=== PATIENT | male | born 1965 | race Caucasian/White ===

== ENCOUNTER → 2016-12-19 | Outpatient (REF) | payer OTHER | LOC: M SFHCLERA 10:18 | PROVIDERS: ATTEND Nurse Practitioner Women's Health | DX: Z12.5 Encounter for screening for malignant neoplasm of prostate (principal); N52.9 Male erectile dysfunction, unspecified | CPT/HCPCS: 84402; 84403; G0103 ==

== ENCOUNTER → 2017-04-10 | Outpatient (CLI) | payer OTHER | LOC: M SMT 13:10 | PROVIDERS: ATTEND Nurse Practitioner Women's Health | DX: Z12.5 Encounter for screening for malignant neoplasm of prostate (principal) | CPT/HCPCS: 36415; G0103 ==

== ENCOUNTER 2019-07-18 09:03 | Day surgery (SDC) | payer OTHER ==
[~2019-07-18] VITALS: Ht 170.2 cm; Wt 93.0 kg
[~2019-07-18 09:03] MED LIST: ADV250INH PO; GABA800T4 PO; MELO15TA28 PO; NS 1,000 ML IV ONE; PROAAER10 INH; TRAM50TA2 PO
[2019-07-18] MEDS ORDERED: LIDOCAINE 2% INJ 100 MG/5 ML SDV (FOR ANES.) As Ordered ONE (09:29)
[2019-07-18] MEDS ORDERED: PROPOFOL 200 MG/20 ML VIAL As Ordered ONE ×4 (09:29→11:36)
[2019-07-18] MEDS ORDERED: ALBUTEROL SULFATE 2.5 MG/0.5 ML INH NEB SOLN INH ONE (10:00)
[2019-07-18] MEDS ORDERED: ALBUTEROL SULFATE 2.5 MG/0.5 ML INH NEB SOLN As Ordered ONE (10:03)
--- NOTE | 2019-07-18 11:49 | ROOR ---
Patient Name: Jeffery Hernandez Procedure Date: 07/18/2019 10:00 AM Date of : 1965 Age: 53 Room: [facility] Gender: Male Note Status: Finalized Procedure: Colonoscopy Indications: Surveillance: Personal history of piecemeal removal of large sessile adenoma on last colonoscopy (less than 1 year ago) Providers: Jeffrey Moore MD Referring MD: BARNEY GUAMAN MD Requesting Provider: Medicines: Monitored Anesthesia Care Complications: No immediate complications. Procedure: Pre-Anesthesia Assessment: - Prior to the procedure, a History and Physical was performed, and patient medications and allergies were reviewed. The patient is competent. The risks and benefits of the procedure and the sedation options and risks were discussed with the patient. All questions were answered and informed consent was obtained. Patient identification and proposed procedure were verified by the physician, the nurse and the anesthesiologist in the procedure room. Mental Status Examination: alert and oriented. Respiratory Examination: clear to auscultation. CV Examination: normal. Prophylactic Antibiotics: The patient does not require prophylactic antibiotics. Prior Anticoagulants: The patient has taken no previous anticoagulant or antiplatelet agents. ASA Grade Assessment: II - A patient with mild systemic disease. After reviewing the risks and benefits, the patient was deemed in satisfactory condition to undergo the procedure. The anesthesia plan was to use monitored anesthesia care (MAC). Immediately prior to administration of medications, the patient was re-assessed for adequacy to receive sedatives. The heart rate, respiratory rate, oxygen saturations, blood pressure, adequacy of pulmonary ventilation, and response to care were monitored throughout the procedure. The physical status of the patient was re-assessed after the procedure. The colonoscopy was performed without difficulty. The patient tolerated the procedure well. The quality of the bowel preparation was good. The terminal ileum, ileocecal valve, appendiceal orifice, and rectum were photographed. Scope insertion time was 3 minutes. Scope withdrawal time was 9 minutes. The total duration of the procedure was 12 minutes. The Colonoscope was introduced through the anus and advanced to the terminal ileum, with identification of the appendiceal orifice and IC valve. Findings: The perianal and digital rectal examinations were normal. The terminal ileum appeared normal. A 10 mm polyp was found in the ascending colon. The polyp was sessile. The polyp was removed with a cold snare. Resection and retrieval were complete. Verification of patient identification for the specimen was done by the physician and nurse using the patient's name, date and medical record number. Estimated blood loss was minimal. A few sessile polyps were found in the rectum, recto-sigmoid colon and ascending colon. The polyps were 3 to 6 mm in size. These polyps were removed with a jumbo cold forceps. Resection and retrieval were complete. Non-bleeding external and internal hemorrhoids were found during retroflexion. The hemorrhoids were medium-sized. Impression: - The examined portion of the ileum was normal. - One 10 mm polyp in the ascending colon, removed with a cold snare. Resected and retrieved. - A few 3 to 6 mm polyps in the rectum, at the recto-sigmoid colon and in the ascending colon, removed with a jumbo cold forceps. Resected and retrieved. - Non-bleeding external and internal hemorrhoids. Recommendation: - Patient has a contact number available for emergencies. The signs and symptoms of potential delayed complications were discussed with the patient. Return to normal activities tomorrow. Written discharge instructions were provided to the patient. - Resume previous diet. - Continue present medications. - Await pathology results. - Repeat colonoscopy in 3 years for surveillance and due to personal history of colon polyps in past Colonoscopy. - Telephone GI clinic for pathology results in 2 weeks. - Return to primary care physician. Jeffrey Moore MD Jeffrey Moore MD 07/18/2019 11:48:25 AM Electronically signed by Jeffrey Moore MD Number of Addenda: 0 Note Initiated On: 07/18/2019 9:28 AM Estimated Blood Loss: Estimated blood loss was minimal.
[2019-07-18 12:25] VITALS: BP 141/83
== END 2019-07-18 12:45 | disposition home or self-care (01) ==
LOC: M OPP 09:03
PROVIDERS: ATTEND Internal Medicine Gastroenterology
DX: Z86.010 Personal history of colon polyps (principal); Z09 Encounter for follow-up examination after completed treatment for conditions other than malignant neoplasm; K64.8 Other hemorrhoids; D12.2 Benign neoplasm of ascending colon; K62.1 Rectal polyp; D12.7 Benign neoplasm of rectosigmoid junction; Z79.891 Long term (current) use of opiate analgesic; Z79.899 Other long term (current) drug therapy; Z88.8 Allergy status to other drugs, medicaments and biological substances

== ENCOUNTER 2020-09-09 13:04 | Emergency (ER) | payer OTHER ==
[~2020-09-09] VITALS: Ht 170.2 cm; Wt 94.5 kg
[~2020-09-09 13:04] MED LIST changes: -NS 1,000 ML IV ONE
[2020-09-09] MEDS ORDERED: SILD50TA2 (13:31)
[2020-09-09] MEDS ORDERED: DEPO200I7 (13:31)
[2020-09-09] MEDS ORDERED: dexameTHASONE 20MG/5ML VIAL (J1100 PER 1MG) IV ONE (13:45)
[2020-09-09] MEDS ORDERED: ASPIRIN 81 MG CHEW TABLET PO ONE (13:45)
[2020-09-09 14:15] LABS: VENOUS BASE EXCESS 0.4 (-2.0-2.0); VENOUS HCO3 28.5 MEQ/L (23.0-27.0); VENOUS O2 SATURATION 61.6 % (60.0-80.0); VENOUS PARTIAL PRESSURE CO2 59.1 mmHg (38.0-50.0); VENOUS PARTIAL PRESSURE O2 33.9 mmHg (30.0-50.0); VENOUS PH 7.301 UNITS (7.330-7.430); VENOUS STANDARD HCO3 23.8 MEQ/L; VENOUS TOTAL CO2 30.3 MEQ/L (24.0-28.0)
[2020-09-09] MEDS: COMBIVENT RESPIMAT 100-20MCG INHALER 4GM INH SCH ×3 (14:16→15:09)
[2020-09-09 14:27] LABS: BASO # 0.1 10^3/uL (0.0-0.2); BASO % 1.2 % (0.0-1.0); EOS # 0.7 10^3/uL (0.0-0.5); EOS % 5.5 % (0.0-3.0); HEMATOCRIT 49.9 % (42.0-52.0); HEMOGLOBIN 16.6 g/dl (13.5-17.5); LYMPH % 32.9 % (24.0-44.0); MEAN CORPUSCULAR HEMOGLOBIN 30.3 pg (27.0-33.0); MEAN CORPUSCULAR HGB CONC 33.3 g/dl (32.0-36.5); MEAN CORPUSCULAR VOLUME 91.2 fl (80.0-96.0); MONO # 1.2 10^3/uL (0.0-0.8); MONO % 9.9 % (0.0-5.0); NEUTROPHILS # 6.1 10^3/uL (1.5-8.5); NEUTROPHILS % 50.1 % (36.0-66.0); PLATELET COUNT, AUTOMATED 354 10^3/uL (150-450); RED BLOOD COUNT 5.47 10^6/uL (4.30-6.10); WHITE BLOOD COUNT 12.2 10^3/uL (4.0-10.0)
[2020-09-09 14:40] LABS: INR 1.02; PROTHROMBIN TIME 13.6 SECONDS (12.5-14.3)
--- OUTSIDE RECORDS SUMMARY | 2020-09-09 14:54 | CCD | Continuity of Care Document ---
Author Author Jeffery GUAMAN M.D. Organization Unknown Address [address] [address] Phone [phone] Problems Active Problems Provider Date Testicular hypofunction Kaushal Guaman M.D. Onset: 11/01 Abnormal testosterone Kaushal Guaman M.D. Onset: 018 Social History Type Date Description Comments Sex Unknown ETOH Use Denies alcohol use Tobacco Use Start: Unknown End: Unknown Patient is a former smoker Cigarettes - Quit 2006 Recreational Drug Use Denies Drug Use Allergies, Adverse Reactions, Alerts Active Allergies Reaction Severity Comments Date Naproxen stomache upset 08/30/2017 Medications Active Medications SIG Qnty Indications Ordering Provide r Date Omeprazole 20mg Capsules DR 1 by mouth every morning 90caps Kaushal Guaman M.D. 08/05/20 20 Proair HFA 108(90Base) mcg/Act Aer osol inhale 2 puffs by mouth every 6 hours as needed 25.5units Kaushal Guaman M.D. 12/17/2019 Testosterone Cypionate 200mg/ml So lution inject 0.75ml intramuscularly once a week maximum daily dose = 0.75ml/7days [id number], code F 9units E29.1 Kaushal Guaman M.D. 2019 Meloxicam 15mg Tablets 1 by mouth every day 90tabs Kaushal Guaman M.D. 04/11/20 18 Spiriva Respimat 1.25mcg/Act Aeros ol 2 puffs every day 4gm Kaushal Guaman M.D. 08/30/19 18 Gabapentin 800mg Tablets take 1 tablet by mouth four times a day 360tabs Kaushal Guaman M.D. 0 08/30/2017 Viagra 50mg Tablets use as directed dx: e 29.1, r 94.8 30tabs E29.1 Kaushal Guaman M.D. 00 R94.8 Advair Diskus 250-50mcg/Dose Aeros ol inhale one puff by mouth twice a day 3disck Nolan Guaman M.D. Tramadol HCL 50mg Tablets take 1 tablet by mouth 3 times a day as needed for pain : 90tabs S97.82xD Kaushal Guaman M.D. Immunizations CPT Code Status Date Vaccine Lot # [id number] Refused 08/30/2017 Influenza Virus Vaccine, Quadrivalent, Slit Virus, Im Use 3Y & Up Vital Signs Date Vital Result Comment 08/05/2020 9:24am BP Systolic 138 mmHg BP Diastolic 66 mmHg Body Temperature 97.7 F Heart Rate 78 /min Respiratory Rate 14 /min Weight 214.00 lb O2 % BldC Oximetry 96 % 04/01/2020 9:56am BP Systolic 130 mmHg BP Diastolic 64 mmHg Heart Rate 72 /min Respiratory Rate 14 /min Weight 212.00 lb Results Test Acquired Date Facility Test Result H/L Range Note CMP 04/01/2020 [facility] Glu 108 mg/dL 70 - 110 1 BUN 8 mg/dL 8 - 23 Creat 1.1 mg/dL 0.7 - 1.2 BUN/Creatinine Ratio 7.5 Calc Na 139 mmol/L 136 - 145 K 4.0 mmol/L 3.5 - 5.1 CL 99.9 mmol/L 98.0 - 107.0 Co2 26.9 mmol/L 22.0 - 29.0 CA 9.0 mg/dL 8.6 - 10.2 TP 6.7 g/dL 6.6 - 8.7 Alb 4.8 g/dL 3.5 - 5.2 A/G Ratio 2.5 Calc Globulin 1.9 Calc Alp 100.6 U/L 40 - 129 Alt (SGPT) 39 U/L 0 - 41 Ast (Sgot) 34 U/L 0 - 40 Tbili 0.07 mg/dL 0.0 - 1.2 Osmolality-Calculated 277.1 Calc Anion Gap 17 mmol/L eGFR 88 # Calc 2 eGFR Non-Afr. Martiniquais 76 # Calc 3 Laboratory test finding 04/01/2020 [facility] [place] Testosterone, Serum 72 ng/dL Low 264-916 4 Laboratory test finding 04/01/2020 [facility] PSA, Total 0.94 ng/mL 0.0 - 4.0 1 CHRONIC KIDNEY DISEASE STAGI NG PER NKF: MALE GFR INTERPRETATION: 20-49 YRS: >60 mL/min Normal 50-59 YRS: >56 mL/min Normal 60-69 YRS: >49 mL/min Normal 70-79 YRS: >42 mL/min Normal 80 and above >35 mL/min Normal FEMALE GRF INTERPRETATION: 20-39 YRS: >60 mL/min Normal 40-49 YRS: >58 mL/min Normal 50-59 YRS: >51 mL/min Normal 60-69 YRS: >45 mL/min Normal 70-79 YRS: >39 mL/min Normal 80 and above >32 mL/min Normal 2 CKD-EPI 3 CKD-EPI 4 Adult male reference interva l is based on a population of healthy nonobese males (BMI <30) between 19 and 39 years old. Marina et.al. JCEM 2017,102;2098-6999. PMID: [id number]. Procedures Description No Information Available Medical Devices Description No Information Available Encounters Type Date Location Provider Dx Diagnosis Office Visit 08/05/2020 9:30a [place] [facility] Kaushal Guaman M.D . M79.672 Pain in left foot Office Visit 04/01/2020 10:00a [place] [facility] Kaushal Guaman M.D . J44.9 Chronic obstructive pulmonary disease, unspecified E29.1 Testicular hypofunction M79.672 Pain in left foot Assessments Date Code Description Provider 08/05/2020 M79.672 Pain in left foot Pato Guaman M.D. 04/01/2020 J44.9 Chronic obstructive pulmonary di sease, unspecified Kaushal Guaman M.D. 04/01/2020 E29.1 Testicular hypofunction Kaushal Guaman M.D. 04/01/2020 M79.672 Pain in left foot Pato Guaman M.D. Plan of Treatment Future Appointment(s):* 02/03/2021 9:15 am - Kaushal Guaman M.D. at [facility] Functional Status Description No Information Available Mental Status Description No Information Available Referrals Description No Information Available
--- OUTSIDE RECORDS SUMMARY | 2020-09-09 14:54 | CCD | Continuity of Care Document ---
Author Author Jeffery GUAMAN M.D. Organization Unknown Address [address] [address] Phone [phone] Problems Active Problems Provider Date Testicular hypofunction [...] a week maximum daily dose = 0.75ml/7days [id number], code F 9units E29.1 Kaushal Guaman M.D. [...] CPT Code Status Date Vaccine Lot # [id number] Refused 08/30/2017 Influenza Virus Vaccine, Quadrivalent, Slit [...] eGFR 88 # Calc 2 eGFR Non-Afr. Faroese 76 # Calc 3 Laboratory test finding [...] and 39 years old. Marina et.al. JCEM 2017,102;4675-9867. PMID: [id number]. Procedures Description No Information Available Medical Devices Description No Information Available Encounters Type Date Location Provider Dx Diagnosis Office Visit 08/05/2020 9:30a [place] [facility] Kaushal Guaman M.D . M79.672 Pain in left foot Office Visit 04/01/2020 10:00a [place] [facility] Kaushal Guaman M.D . J44.9 Chronic obstructive pulmonary disease, unspecified E29.1 Testicular hypofunction M79.672 Pain in left foot Assessments Date Code Description Provider 08/05/2020 M79.672 Pain in left foot Pato Guaman M.D. 04/01/2020 J44.9 Chronic obstructive pulmonary di sease, unspecified Kaushal Guaman M.D. 04/01/2020 E29.1 Testicular hypofunction Kaushal Guaman M.D. 04/01/2020 M79.672 Pain in left foot Pato Guaman M.D. Plan of Treatment No Information Available Functional Status Description No Information Available Mental Status Description No Information Available Referrals Description No Information Available
--- OUTSIDE RECORDS SUMMARY | 2020-09-09 14:54 | CCD ---
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 Role Phone Larissa GUAMAN MD Unavailable Unavailable Larissa GUAMAN MD Unavailable Unavailable Larissa GUAMAN MD Unavailable Unavailable Larissa GUAMAN MD Unavailable Unavailable Larissa GUAMAN MD Unavailable Unavailable Larissa GUAMAN MD Unavailable Unavailable Larissa GUAMAN MD Unavailable Unavailable Larissa GUAMAN MD Unavailable Unavailable Larissa GUAMAN MD Unavailable Unavailable Larissa GUAMAN MD Unavailable Unavailable Larissa GUAMAN MD Unavailable Unavailable Larissa GUAMAN MD Unavailable Unavailable Larissa GUAMAN MD Unavailable Unavailable Larissa GUAMAN MD Unavailable Unavailable Larissa GUAMAN MD Unavailable Unavailable Larissa GUAMAN MD Unavailable Unavailable Larissa GUAMAN MD Unavailable Unavailable Larissa GUAMAN MD Unavailable Unavailable Larissa GUAMAN MD Unavailable Unavailable Larissa GUAMAN MD Unavailable Unavailable Larissa GUAMAN MD Unavailable Unavailable Larissa GUAMAN MD Unavailable Unavailable Larissa GUAMAN MD Unavailable Unavailable Larissa GUAMAN MD Unavailable Unavailable Larissa GUAMAN MD Unavailable Unavailable Larissa GUAMAN MD Unavailable Unavailable Larissa GUAMAN MD Unavailable Unavailable Larissa GUAMAN MD Unavailable Unavailable Larissa GUAMAN MD Unavailable Unavailable Larissa GUAMAN MD Unavailable Unavailable Larissa GUAMAN MD Unavailable Unavailable Larissa GUAMAN MD Unavailable Unavailable Larissa GUAMAN MD Unavailable Unavailable Larissa GUAMAN MD Unavailable Unavailable Larissa GUAMAN MD Unavailable Unavailable ROWENA, H BARNEY MD Unavailable Unavailable ROWENA, H BARNEY MD Unavailable Unavailable ROWENA, H BARNEY MD Unavailable Unavailable ROWENA, H BARNEY MD Unavailable Unavailable ROWENA, H BANREY MD Unavailable Unavailable ROWENA, H BARNEY MD Unavailable Unavailable ROWENA, H BARNEY MD Unavailable Unavailable ROWENA, H BARNEY MD Unavailable Unavailable ROWENA, H BARNEY MD Unavailable Unavailable ROWENA, H BARNEY MD Unavailable Unavailable ROWENA, H BARNEY MD Unavailable Unavailable ROWENA, H BARNEY MD Unavailable Unavailable ROWENA, H BARNEY MD Unavailable Unavailable ROWENA, H BARNEY MD Unavailable Unavailable ROWENA, H BARNEY MD Unavailable Unavailable ROWENA, H BARNEY MD Unavailable Unavailable ROWENA, H BARNEY MD Unavailable Unavailable ROWENA, H BARNEY MD Unavailable Unavailable ROWENA, H BARNEY MD Unavailable Unavailable ROWENA, H BARNEY MD Unavailable Unavailable ROWENA, H BARNEY MD Unavailable Unavailable ROWENA, H BARNEY MD Unavailable Unavailable ROWENA, H BARNEY MD Unavailable Unavailable ROWENA, H BARNEY MD Unavailable Unavailable ROWENA, H BARNEY MD Unavailable Unavailable ROWENA, H BARNEY MD Unavailable Unavailable ROWENA, H BARNEY MD Unavailable Unavailable ROWENA, H BARNEY MD Unavailable Unavailable ROWENA, H BARNEY MD Unavailable Unavailable ROWENA, H BARNEY MD Unavailable Unavailable ROWENA, H BARNEY MD Unavailable Unavailable ROWENA, H BARNEY MD Unavailable Unavailable ROWENA, H BARNEY MD Unavailable Unavailable ROWENA, H BARNEY MD Unavailable Unavailable ROWENA, H BARNEY MD Unavailable Unavailable ROWENA, H BARNEY MD Unavailable Unavailable ROWENA, H BARNEY MD Unavailable Unavailable ROWENA, H BARNEY MD Unavailable Unavailable ROWENA, H BARNEY MD Unavailable Unavailable ROWENA, H BARNEY MD Unavailable Unavailable Re-disclosure Warning The records that you are about to access may contain information from federally-assisted alcohol or drug abuse programs. If such information is present, then the following federally mandated warning applies: This information has been disclosed to you from records protected by federal confidentiality rules (42 CFR part 2). The federal rules prohibit you from making any further disclosure of this information unless further disclosure is expressly permitted by the written consent of the person to whom it pertains or as otherwise permitted by 42 CFR part 2. A general authorization for the release of medical or other information is NOT sufficient for this purpose. The Federal rules restrict any use of the information to criminally investigate or prosecute any alcohol or drug abuse patient.The records that you are about to access may contain highly sensitive health information, the redisclosure of which is protected by Article 27-F of the [facility] Public Health law. If you continue you may have access to information: Regarding HIV / AIDS; Provided by facilities licensed or operated by the [facility] Office of Mental Health; or Provided by the [facility] Office for People With Developmental Disabilities. If such information is present, then the following [facility] mandated warning applies: This information has been disclosed to you from confidential records which are protected by state law. State law prohibits you from making any further disclosure of this information without the specific written consent of the person to whom it pertains, or as otherwise permitted by law. Any unauthorized further disclosure in violation of state law may result in a fine or snf sentence or both. A general authorization for the release of medical or other information is NOT sufficient authorization for further disc losure. Family History Family Member Name Family Member Gender Family Member Status Date o f Status Description Data Source(s) Unknown Unknown Problem [facility] ([facility] Unknown Unknown Problem [facility] ([facility]) Encounters Encounter Providers Location Date Indications Data Source(s ) Outpatient Attender: BARNEY GUAMAN MD [place] [facility] 05/2020 08:30:00 AM EST [facility] Outpatient Attender: BARNEY GUAMAN MD [place] [facility] 01/2020 10:00:00 AM EDT [facility] ([facility] Medications Medication Brand Name Start Date Product Form Dose Route Admi nistrative Instructions Pharmacy Instructions Status Indications Reaction Description Data Source(s) 20 mg 08/06/2020 12:00:00 AM EST capsule,delayed release (DR/EC) 30 TAKE ONE CAPSULE BY MOUTH EVERY MORNING TAKE ONE CAPSULE BY MOUTH EVERY MORNING SOLD: 08/07/2020 [facility] Omeprazole 20 MG Delayed Release Oral Capsule Omeprazole 08/05/2020 12:00:00 AM EST ORAL active MED[facility] ([facility] 50 mg 06/16/2020 12:00:00 AM EDT tablet 90 TAKE ONE TABLET BY MOUTH THREE TIMES A DAY NEEDED FOR PAIN, MAXIMUM DAILY DOSE = 3 TAKE ONE TABLET BY MOUTH THREE TIMES A DAY NEEDED FOR PAIN, MAXIMUM DAILY DOSE = 3 SOLD: 06/16/2020 [facility] 50 mg 06/16/2020 12:00:00 AM EDT tablet 90 TAKE ONE TABLET BY MOUTH THREE TIMES A DAY NEEDED FOR PAIN, MAXIMUM DAILY DOSE = 3 TAKE ONE TABLET BY MOUTH THREE TIMES A DAY NEEDED FOR PAIN, MAXIMUM DAILY DOSE = 3 SOLD: 07/17/2020 [facility] 50 mg 06/16/2020 12:00:00 AM EDT tablet 90 TAKE ONE TABLET BY MOUTH THREE TIMES A DAY NEEDED FOR PAIN, MAXIMUM DAILY DOSE = 3 TAKE ONE TABLET BY MOUTH THREE TIMES A DAY NEEDED FOR PAIN, MAXIMUM DAILY DOSE = 3 SOLD: 08/16/2020 [facility] 200 ACTUAT Albuterol 0.09 MG/ACTUAT Metered Dose Inhaler [Pr oAir] Proair HFA 12/17/2019 12:00:00 AM EDT ORAL active [facility] ([facility] 200 mg/mL 11/24/2019 12:00:00 AM EDT oil 3 INJECT 0.75ML INTRAMUSCULARLY ONCE WEEKLY - MAXIMUM DAILY DOSE = 0.75ML EVERY 7 DAYS INJECT 0.75ML INTRAMUSCULARLY ONCE WEEKLY - MAXIMUM DAILY DOSE = 0.75ML EVERY 7 DAYS SOLD: 11/26/2019 [facility] testosterone cypionate 200 MG/ML Injectable Solution Testost erone Cypionate 10/13/2019 12:00:00 AM EST active [facility] ([facility] 200 mg/mL 10/13/2019 12:00:00 AM EST oil 3 INJECT 0.75ML INTRAMUSCULARLY ONCE A WEEK MAXIMUM DAILY DOSE = 0.75ML/7DAYS INJECT 0.75ML INTRAMUSCULARLY ONCE A WEEK MAXIMUM DAILY DOSE = 0.75ML/7DAYS SOLD: 10/17/2019 [facility] 200 mg/mL 09/10/2019 12:00:00 AM EST oil 3 INJECT 0.75ML INTRAMUSCULARLY ONCE WEEKLY, NOT TO EXCEED 0.75ML EVERY 7 DAYS INJECT 0.75ML INTRAMUSCULARLY ONCE WEEKLY, NOT TO EXCEED 0.75ML EVERY 7 DAYS SOLD: 09/15/2019 [facility] 200 mg/mL 08/08/2019 12:00:00 AM EST oil 3 INJECT 0.75ML INTRAMUSCULARLY ONCE WEEKLY - MAXIMUM DAILY DOSE = 0.75ML INJECT 0.75ML INTRAMUSCULARLY ONCE WEEKLY - MAXIMUM DAILY DOSE = 0.75ML SOLD: 08/15/2019 [facility] Insurance Providers Payer name Policy type / Coverage type Policy ID Covered constitution party ID Covered constitution party's relationship to mueller Policy Mueller Plan Information [facility] [id number] SP [id number] [facility] [id number] SP [id number] [facility] Health Maintenance Organization ([facility]) [id number] Self [id number] [facility] Federal Service Medigap Part B Self [facility] Health Plan Commercial Self [facility] [id number] [facility] [id number] USP AT [facility] [id number] 18 [id number] Results ID Date Data Source [id number] 04/01/2020 01:49:00 PM EDT MEDVIJAY ([facility] Name Value Range Interpretation Code Description Data Rhoda rce(s) Supporting Document(s) Glu 108 mg/dL 70-110 [facility] ([facility] CHRONIC KIDNEY DISEASE STAGING PER NKF: MALE GFR INTERPRETATION: 20-49 YRS: [...] Normal 80 and above >32 mL/min Normal BUN 8 mg/dL 8-23 [facility] ([facility] CHRONIC KIDNEY DISEASE STAGING PER NKF: MALE GFR INTERPRETATION: 20-49 YRS: [...] Normal 80 and above >32 mL/min Normal BUN/Creatinine Ratio 7.5 Calc [facility] ( [facility] CHRONIC KIDNEY DISEASE STAGING PER NKF: MALE GFR INTERPRETATION: 20-49 YRS: [...] Normal 80 and above >32 mL/min Normal Creat 1.1 mg/dL 0.7-1.2 [facility] ([facility] CHRONIC KIDNEY DISEASE STAGING PER NKF: MALE GFR INTERPRETATION: 20-49 YRS: [...] Normal 80 and above >32 mL/min Normal Na 139 mmol/L 136-145 [facility] ([facility] CHRONIC KIDNEY DISEASE STAGING PER NKF: MALE GFR INTERPRETATION: 20-49 YRS: [...] Normal 80 and above >32 mL/min Normal K 4.0 mmol/L 3.5-5.1 [facility] ([facility] CHRONIC KIDNEY DISEASE STAGING PER NKF: MALE GFR INTERPRETATION: 20-49 YRS: [...] Normal 80 and above >32 mL/min Normal CL 99.9 mmol/L 98.0-107.0 [facility] ([facility] CHRONIC KIDNEY DISEASE STAGING PER NKF: MALE GFR INTERPRETATION: 20-49 YRS: [...] Normal 80 and above >32 mL/min Normal CA 9.0 mg/dL 8.6-10.2 [facility] CHRONIC KIDNEY DISEASE STAGING PER NKF: MALE GFR INTERPRETATION: 20-49 YRS: [...] Normal 80 and above >32 mL/min Normal Co2 26.9 mmol/L 22.0-29.0 [facility] ([facility] CHRONIC KIDNEY DISEASE STAGING PER NKF: MALE GFR INTERPRETATION: 20-49 YRS: [...] Normal 80 and above >32 mL/min Normal Alb 4.8 g/dL 3.5-5.2 [facility] ([facility] CHRONIC KIDNEY DISEASE STAGING PER NKF: MALE GFR INTERPRETATION: 20-49 YRS: [...] Normal 80 and above >32 mL/min Normal TP 6.7 g/dL 6.6-8.7 [facility] ([facility] CHRONIC KIDNEY DISEASE STAGING PER NKF: MALE GFR INTERPRETATION: 20-49 YRS: [...] Normal 80 and above >32 mL/min Normal A/G Ratio 2.5 Calc [facility] ([facility] CHRONIC KIDNEY DISEASE STAGING PER NKF: MALE GFR INTERPRETATION: 20-49 YRS: [...] Normal 80 and above >32 mL/min Normal Globulin 1.9 Calc MEDVIJAY ([facility] CHRONIC KIDNEY DISEASE STAGING PER NKF: MALE GFR INTERPRETATION: 20-49 YRS: [...] Normal 80 and above >32 mL/min Normal Alp 100.6 U/L 40-129 [facility]JAY ([facility] CHRONIC KIDNEY DISEASE STAGING PER NKF: MALE GFR INTERPRETATION: 20-49 YRS: [...] Normal 80 and above >32 mL/min Normal Alt (SGPT) 39 U/L 0-41 [facility] CHRONIC KIDNEY DISEASE STAGING PER NKF: MALE GFR INTERPRETATION: 20-49 YRS: [...] Normal 80 and above >32 mL/min Normal Ast (Sgot) 34 U/L 0-40 MED[facility] ([facility] CHRONIC KIDNEY DISEASE STAGING PER NKF: MALE GFR INTERPRETATION: 20-49 YRS: [...] Normal 80 and above >32 mL/min Normal Tbili 0.07 mg/dL 0.0-1.2 MED[facility] ([facility] CHRONIC KIDNEY DISEASE STAGING PER NKF: MALE GFR INTERPRETATION: 20-49 YRS: [...] Normal 80 and above >32 mL/min Normal Osmolality-Calculated 277.1 Calc MED ENT ([facility] CHRONIC KIDNEY DISEASE STAGING PER NKF: MALE GFR INTERPRETATION: 20-49 YRS: [...] Normal 80 and above >32 mL/min Normal Anion Gap 17 mmol/L MED[facility] ([facility] CHRONIC KIDNEY DISEASE STAGING PER NKF: MALE GFR INTERPRETATION: 20-49 YRS: [...] Normal 80 and above >32 mL/min Normal eGFR 88 # JENNIFER ( [facility] CHRONIC KIDNEY DISEASE STAGING PER NKF: MALE GFR INTERPRETATION: 20-49 YRS: [...] Normal 80 and above >32 mL/min Normal eGFR Non-Afr. [place]er 76 # JENNIFER ([facility] CHRONIC KIDNEY DISEASE STAGING PER NKF: MALE GFR INTERPRETATION: 20-49 YRS: [...] Normal 80 and above >32 mL/min Normal ID Date Data Source [id number] 04/01/2020 10:20:00 AM EDT JENNIFER ([facility] Name Value Range Interpretation Code Description Data Rhoda rce(s) Supporting Document(s) Prostate specific Ag [Mass/volume] in Serum or Plasma 0.94 ng/mL 0.0- 4.0 MED[facility] ([facility] ID Date Data Source [id number] 04/01/2020 10:20:00 AM EDT MED[facility] ([facility] Name Value Range Interpretation Code Description Data Rhoda rce(s) Supporting Document(s) Testosterone [Mass/volume] in Serum or Plasma 72 ng/dL [id number] Below low normal [facility] ([facility] <content>Adult male reference interval i s based on a population of</content>
<content>healthy nonobese males (BMI <30) between 19 and 39 years old.</content>
<content>ernesto Gray.al. [facility] 2017,102;[id number]. PMID: [id number].</content>
<content></content> Procedure Vital Signs ID Date Data Source UNK Name Value Range Interpretation Code Description Data Source(s) Oxygen saturation in Arterial blood by Pulse oximetry 96 % 96 % [facility] ([facility] Body weight 214.00 [lb_av] 214.00 [lb_av] MEDEN T ([facility] Respiratory rate 14 /min 14 /min MEDENT ( [facility] Heart rate 78 /min 78 /min MED[facility] ([facility] Body temperature 97.7 [degF] 97.7 [degF] MED[facility] ([facility] Diastolic blood pressure 66 mm[Hg] 66 mm[Hg] MED[facility] ([facility] Systolic blood pressure 138 mm[Hg] 138 mm[Hg] M EDENT ([facility] Body weight 212.00 [lb_av] 212.00 [lb_av] MEDEN T ([facility] Respiratory rate 14 /min 14 /min MEDENT ( [facility] Heart rate 72 /min 72 /min MED[facility] ([facility] Diastolic blood pressure 64 mm[Hg] 64 mm[Hg] MED[facility] ([facility] Systolic blood pressure 130 mm[Hg] 130 mm[Hg] M OR[place]O ([facility] Oxygen saturation in Arterial blood by Pulse oximetry 96 % 96 % JENNIFER ([facility] Body mass index (BMI) [Ratio] 33.8 kg/m2 33.8 k g/m2 JENNIFER ([facility] Body weight 216.00 [lb_av] 216.00 [lb_av] MEDEN T ([facility] Body height 67 [in_i] 67 [in_i] NGUYỄNENT ([facility] 5'7" Respiratory rate 14 /min 14 /min JENNIFER ( [facility] Heart rate 80 /min 80 /min JENNIFER ([facility] Body temperature 97.2 [degF] 97.2 [degF] JENNIFER ([facility] Diastolic blood pressure 70 mm[Hg] 70 mm[Hg] JENNIFER ([facility] Systolic blood pressure 130 mm[Hg] 130 mm[Hg] M [place] ([facility]
[2020-09-09 14:56] LABS: ALBUMIN 4.8 GM/DL (3.2-5.2); ALT/SGPT 63 U/L (12-78); BILIRUBIN,DIRECT 0.2 MG/DL (0.0-0.2); BILIRUBIN,TOTAL 0.8 MG/DL (0.2-1.0); BLOOD UREA NITROGEN 13 MG/DL (7-18); CALCIUM LEVEL 9.1 MG/DL (8.5-10.1); CARBON DIOXIDE LEVEL 28 MEQ/L (21-32); CHLORIDE LEVEL 102 MEQ/L (98-107); CK-MB VALUE MASS 3.3 NG/ML (<3.6); CPK CREATINE PHOSPHOKINASE 242 U/L (39-308); CREATININE FOR GFR 1.31 MG/DL (0.70-1.30); GLOMERULAR FILTRATION RATE > 60.0 (>56); GLUCOSE, FASTING 110 MG/DL (70-100); MB/CK RELATIVE INDEX 1.36 (< OR =4); NT-PRO BNP 45 PG/ML (<125); POTASSIUM SERUM 4.3 MEQ/L (3.5-5.1); SODIUM LEVEL 137 MEQ/L (136-145); TOTAL PROTEIN 8.1 GM/DL (6.4-8.2); TROPONIN I < 0.02 NG/ML (< 0.10)
--- NOTE | 2020-09-09 16:42 | ECGEPIP ---
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
[2020-09-09] MEDS ORDERED: COMBAER6 INH (16:52)
[2020-09-09] MEDS ORDERED: PRED10TA2 PO (16:52)
[2020-09-09 17:58] VITALS: BP 146/99
--- NOTE | 2020-09-10 06:07 | REP ---
INDICATION: DYSPNEA/COUGH COMPARISON: None. TECHNIQUE: Portable AP view of the chest FINDINGS: The mediastinum and cardiac silhouette are within normal limits for portable technique. The lung bauer are clear without acute consolidation, effusion, or pneumothorax. Skeletal structures are intact. IMPRESSION: No acute cardiopulmonary process appreciated. <Electronically signed by Sampson Constantino > 09/10/20 0603
== END 2020-09-09 18:08 | disposition home or self-care (01) ==
LOC: M ED 13:04
DX: J44.1 Chronic obstructive pulmonary disease with (acute) exacerbation (principal); R00.0 Tachycardia, unspecified; R07.89 Other chest pain; R07.1 Chest pain on breathing; R42 Dizziness and giddiness; R05 Cough; Z87.891 Personal history of nicotine dependence; Z79.890 Hormone replacement therapy; Z79.899 Other long term (current) drug therapy; Z88.6 Allergy status to analgesic agent
CPT/HCPCS: 71045; 80048; 80076; 82550; 82553; 82803; 83605; 83880; 84443; 84484; 85025; 85610; 87040; 87486; 87581; 87633; 87798; 93005; 93041; 94760; 96374; 99285; J1100